=== PATIENT | female | born 1980 | race Caucasian/White ===

== ENCOUNTER 2023-08-19 16:40 | Inpatient (IN) | payer SELFPAY ==
[~2023-08-19] VITALS: Ht 160 cm; Wt 63.0 kg
[2023-08-19] MEDS: NS 1,000 ML IV ONE (17:29)
[2023-08-19 17:36] LABS: HEMATOCRIT 38.2 % (36.0-47.0); HEMOGLOBIN 13.3 g/dl (12.0-15.5); MEAN CORPUSCULAR HEMOGLOBIN 36.6 pg (27.0-33.0); MEAN CORPUSCULAR HGB CONC 34.8 g/dl (32.0-36.5); MEAN CORPUSCULAR VOLUME 105.2 fl (80.0-96.0); RED BLOOD COUNT 3.63 10^6/uL (4.00-5.40); WHITE BLOOD COUNT 5.2 10^3/uL (4.0-10.0)
[2023-08-19] MEDS: LORazepam 2 MG TAB PO PRN (17:46)
[2023-08-19 17:58] LABS: PLATELET COUNT, AUTOMATED 75 10^3/uL (150-450)
[2023-08-19 18:07] LABS: ETHYL ALCOHOL (ETHANOL) 0.015 % (0.000-0.010)
[2023-08-19 18:09] LABS: ALBUMIN 3.8 G/DL (3.2-5.2); ALKALINE PHOSPHATASE 143 U/L (46-116); ALT/SGPT 61 U/L (7.0-40); AST/SGOT 136 U/L (<34); BILIRUBIN,DIRECT 0.6 MG/DL (<0.4); BILIRUBIN,TOTAL 1.8 MG/DL (0.3-1.2); BLOOD UREA NITROGEN 12 MG/DL (9-23); CALCIUM LEVEL 9.1 MG/DL (8.5-10.1); CARBON DIOXIDE LEVEL 20 MMOL/L (20-31); CHLORIDE LEVEL 102 MMOL/L (98-107); CREATININE FOR GFR 0.46 MG/DL (0.55-1.30); GLOMERULAR FILTRATION RATE > 60.0 (>58); GLUCOSE, FASTING 78 MG/DL (60-100); HCG, SERUM QUALITATIVE NEGATIVE (NEGATIVE); SALICYLATE LEVEL < 3.0 MG/DL (<30); SODIUM LEVEL 135 MMOL/L (136-145)
[2023-08-19 18:12] LABS: THYROID STIMULATING HORMONE 3.869 uIU/ML (0.55-4.78)
[2023-08-19 18:19] LABS: AMPHETAMINES LEVEL URINE NEGATIVE (NEGATIVE)
[2023-08-19 18:20] LABS: BARBITURATES URINE NEGATIVE (NEGATIVE); BENZODIAZEPINES URINE NEGATIVE (NEGATIVE); CANNABINOIDS URINE NEGATIVE (NEGATIVE); COCAINE METABOLITE URINE NEGATIVE (NEGATIVE); METHADONE URINE NEGATIVE (NEGATIVE); OPIATES URINE NEGATIVE (NEGATIVE); PHENCYCLIDINE URINE NEGATIVE (NEGATIVE)
[2023-08-19] MEDS: LORazepam 2 MG/ML 1ML VIAL IV STA (19:44)
[2023-08-19] MEDS ORDERED: POTASSIUM CHLORIDE 10MEQ SR TABLET PO SCH (20:00)
[2023-08-19] MEDS: LORazepam 2 MG/ML 1ML VIAL IV PRN ×2 (20:10→22:48)
[2023-08-19] MEDS ORDERED: LEVO25TA5 PO (20:15)
[2023-08-19 20:24] LABS: LIPASE 83 U/L (12-53)
[2023-08-19 20:25] LABS: MAGNESIUM LEVEL 1.5 MG/DL (1.8-2.4)
[2023-08-19 20:26] LABS: AMYLASE 143 U/L (30-118)
[2023-08-19] MEDS ORDERED: LORazepam 2 MG TAB XX PRN (20:35)
[2023-08-19] MEDS: POTASSIUM CHLORIDE 10% LIQ 20MEQ/15ML UDC PO ONE (21:00)
[2023-08-19] MEDS ORDERED: THIAMINE 100 MG TAB PO SCH (21:00)
[2023-08-19] MEDS: THIAMINE 100 MG TAB PO SCH (21:00)
[2023-08-19] MEDS ORDERED: HOME MED LIST COMPLETE! XX SCH (21:15)
[2023-08-19] MEDS: MAG SULF 1GM/100ML (MAG RUN) 1 GM in IV 1 EA IV SCH (21:16)
[2023-08-19] MEDS: dexmedeTOMidine 200 MCG in IV 1 EA IV SCH (21:25)
[2023-08-19 22:46] VITALS: BP 126/8
[2023-08-19 23:00] VITALS: BP 126/81; TEMP 99.4; O2SAT 96
[2023-08-19 23:48] VITALS: BP 129/76
[2023-08-19 23:51] VITALS: BP 129/76; TEMP 98.5; O2SAT 95
[2023-08-20] VITALS (14 sets, daily range): BP systolic 119–150; BP diastolic 75–84; TEMP 96.9–99.4; O2SAT 92–100
[2023-08-20] MEDS: OXAZEPAM 10MG CAP PO SCH
[2023-08-20] MEDS: KCL 10MEQ/100ML SWI (KRUN) 10 MEQ in IV 1 EA IV SCH (00:42)
[2023-08-20 04:58] LABS: HEMATOCRIT 34.7 % (36.0-47.0); HEMOGLOBIN 11.9 g/dl (12.0-15.5); MEAN CORPUSCULAR HEMOGLOBIN 36.1 pg (27.0-33.0); MEAN CORPUSCULAR HGB CONC 34.3 g/dl (32.0-36.5); MEAN CORPUSCULAR VOLUME 105.2 fl (80.0-96.0); WHITE BLOOD COUNT 3.5 10^3/uL (4.0-10.0)
[2023-08-20 05:05] LABS: PLATELET COUNT, AUTOMATED 71 10^3/uL (150-450)
[2023-08-20 05:20] LABS: ALBUMIN 3.3 G/DL (3.2-5.2); ALKALINE PHOSPHATASE 115 U/L (46-116); ALT/SGPT 50 U/L (7.0-40); AST/SGOT 116 U/L (<34); BILIRUBIN,TOTAL 1.9 MG/DL (0.3-1.2); BLOOD UREA NITROGEN 9 MG/DL (9-23); CALCIUM LEVEL 8.5 MG/DL (8.5-10.1); CARBON DIOXIDE LEVEL 20 MMOL/L (20-31); CHLORIDE LEVEL 106 MMOL/L (98-107); CREATININE FOR GFR 0.38 MG/DL (0.55-1.30); GLOMERULAR FILTRATION RATE > 60.0 (>58); GLUCOSE, FASTING 83 MG/DL (60-100); POTASSIUM SERUM 3.6 MMOL/L (3.5-5.1); SODIUM LEVEL 136 MMOL/L (136-145); TOTAL PROTEIN 6.7 G/DL (5.7-8.2)
[2023-08-20 07:06] LABS: APPEARANCE, URINE CLEAR (CLEAR); BACTERIA, URINE AUTO 1+ (NEGATIVE); BILIRUBIN, URINE AUTO NEGATIVE (NEGATIVE); BLOOD, URINE BLOOD NEGATIVE (NEGATIVE); COLOR, URINE YELLOW (YELLOW); GLUCOSE, URINE (UA) AUTO NEGATIVE (NEGATIVE); KETONE, URINE AUTO NEGATIVE (NEGATIVE); LEUKOCYTE ESTERASE, URINE AUTO TRACE (NEGATIVE); NITRITE, URINE AUTO NEGATIVE (NEGATIVE); PROTEIN, URINE AUTO NEGATIVE (NEGATIVE); RBC, URINE AUTO 0 /HPF (0-3); SPECIFIC GRAVITY URINE AUTO 1.004 (1.002-1.035); SQUAMOUS EPITHELIAL CELL UR AU 0 /HPF (0-6); UROBILINOGEN, URINE AUTO 0.2 mg/dL (0.0-2.0); WBC, URINE AUTO 0 /HPF (0-3)
[2023-08-20] MEDS ORDERED: MULTIVITAMINS/MINERALS THERAP 1 TAB PO SCH (09:00)
[2023-08-20] MEDS ORDERED: FOLIC ACID 1MG TAB PO SCH (09:00)
[2023-08-20] MEDS: MULTIVITAMINS/MINERALS THERAP 1 TAB PO SCH (09:45)
[2023-08-20] MEDS: FOLIC ACID 1MG TAB PO SCH (09:45)
[2023-08-20] MEDS: ENOXAPARIN 40MG/0.4ML SYRINGE (J1650 PER 10MG) SC SCH (09:46)
[2023-08-20] MEDS: LEVOTHYROXINE 25MCG TABLET (0.025MG) PO SCH (11:11)
[2023-08-20 12:54] LABS: HEPATITIS B SURFACE ANTIBODY NEGATIVE (POSITIVE)
[2023-08-20 13:06] LABS: HEPATITIS B SURFACE ANTIGEN NEGATIVE (NEGATIVE)
[2023-08-20 13:27] LABS: HEPATITIS C VIRUS ABY INDEX < 0.02 INDEX (<0.8)
[2023-08-21] VITALS: BP 138/91; TEMP 98.9; O2SAT 98
[2023-08-21 04:30] VITALS: BP 130/79; TEMP 99; O2SAT 99
[2023-08-21 05:25] LABS: BASO # 0.1 10^3/uL (0.0-0.2); BASO % 1.4 % (0.0-1.0); EOS # 0.1 10^3/uL (0.0-0.5); EOS % 1.6 % (0.0-3.0); HEMATOCRIT 34.2 % (36.0-47.0); HEMOGLOBIN 11.8 g/dl (12.0-15.5); LYMPH # 1.1 10^3/uL (1.5-5.0); MEAN CORPUSCULAR HEMOGLOBIN 36.5 pg (27.0-33.0); MEAN CORPUSCULAR HGB CONC 34.5 g/dl (32.0-36.5); MEAN CORPUSCULAR VOLUME 105.9 fl (80.0-96.0); MONO # 0.5 10^3/uL (0.0-0.8); MONO % 13.6 % (2.0-8.0); NEUTROPHILS # 1.9 10^3/uL (1.5-8.5); NEUTROPHILS % 51.9 % (36.0-66.0); RED BLOOD COUNT 3.23 10^6/uL (4.00-5.40); WHITE BLOOD COUNT 3.7 10^3/uL (4.0-10.0)
[2023-08-21 05:29] LABS: PLATELET COUNT, AUTOMATED 84 10^3/uL (150-450)
[2023-08-21 05:41] LABS: BLOOD UREA NITROGEN 10 MG/DL (9-23); CALCIUM LEVEL 8.5 MG/DL (8.5-10.1); CARBON DIOXIDE LEVEL 25 MMOL/L (20-31); CHLORIDE LEVEL 106 MMOL/L (98-107); CREATININE FOR GFR 0.43 MG/DL (0.55-1.30); GLOMERULAR FILTRATION RATE > 60.0 (>58); GLUCOSE, FASTING 109 MG/DL (60-100); SODIUM LEVEL 139 MMOL/L (136-145)
[2023-08-21] MEDS: POTASSIUM CHLORIDE 10MEQ SR TABLET PO ONE ×3 (06:38→11:14)
[2023-08-21 07:24] LABS: MAGNESIUM LEVEL 1.7 MG/DL (1.8-2.4)
[2023-08-21] MEDS: KCL 10MEQ/100ML SWI (KRUN) 10 MEQ in IV 1 EA IV SCH (07:37)
[2023-08-21 07:40] VITALS: BP 120/81; TEMP 98.1; O2SAT 100
[2023-08-21 09:39] LABS: INR 1.32
[2023-08-21 11:24] VITALS: BP 138/76; TEMP 97.3; O2SAT 98
[2023-08-21] MEDS: MAG SULF 1GM/100ML (MAG RUN) 1 GM in IV 1 EA IV SCH (13:27)
[2023-08-21] MEDS ORDERED: MIRALAX *UNIT DOSE* 17GM PACKET PO PRN (15:15)
[2023-08-21 15:18] VITALS: BP 141/85; TEMP 97.7; O2SAT 97
[2023-08-21 20:00] VITALS: BP 144/73; TEMP 98.6; O2SAT 98
[2023-08-22] VITALS: BP 125/73; TEMP 97.9; O2SAT 100
[2023-08-22 04:00] VITALS: BP 144/98; TEMP 97.6; O2SAT 99
[2023-08-22 05:08] LABS: BASO # 0.1 10^3/uL (0.0-0.2); BASO % 1.3 % (0.0-1.0); EOS # 0.1 10^3/uL (0.0-0.5); EOS % 1.6 % (0.0-3.0); HEMATOCRIT 35.6 % (36.0-47.0); HEMOGLOBIN 12.3 g/dl (12.0-15.5); LYMPH # 1.2 10^3/uL (1.5-5.0); LYMPH % 31.6 % (24.0-44.0); MEAN CORPUSCULAR HEMOGLOBIN 36.9 pg (27.0-33.0); MEAN CORPUSCULAR HGB CONC 34.6 g/dl (32.0-36.5); MEAN CORPUSCULAR VOLUME 106.9 fl (80.0-96.0); MONO # 0.5 10^3/uL (0.0-0.8); MONO % 13.9 % (2.0-8.0); NEUTROPHILS % 51.3 % (36.0-66.0); PLATELET COUNT, AUTOMATED 100 10^3/uL (150-450); RED BLOOD COUNT 3.33 10^6/uL (4.00-5.40); WHITE BLOOD COUNT 3.8 10^3/uL (4.0-10.0)
[2023-08-22 05:53] LABS: BLOOD UREA NITROGEN 8 MG/DL (9-23); CALCIUM LEVEL 8.7 MG/DL (8.5-10.1); CARBON DIOXIDE LEVEL 25 MMOL/L (20-31); CHLORIDE LEVEL 106 MMOL/L (98-107); CREATININE FOR GFR 0.41 MG/DL (0.55-1.30); GLOMERULAR FILTRATION RATE > 60.0 (>58); GLUCOSE, FASTING 108 MG/DL (60-100); POTASSIUM SERUM 3.9 MMOL/L (3.5-5.1); SODIUM LEVEL 137 MMOL/L (136-145)
[2023-08-22 07:28] LABS: MAGNESIUM LEVEL 1.8 MG/DL (1.8-2.4)
[2023-08-22 08:00] VITALS: BP 119/72; TEMP 97.9; O2SAT 98
[2023-08-22] MEDS ORDERED: FOLI1TAB11 PO (08:41)
[2023-08-22] MEDS ORDERED: THIA100TA PO (08:41)
== END 2023-08-22 09:25 | disposition home or self-care (01) | DRG 775 ==
LOC: M ED 16:40 → M ED INP 21:11 → M ICU 22:17 → OBSVTOIN 08-20 14:20
PROVIDERS: ADMIT Internal Medicine Critical Care Medicine; ATTEND Internal Medicine
DX: F10.231 Alcohol dependence with withdrawal delirium (principal); D69.6 Thrombocytopenia, unspecified; R74.01 Elevation of levels of liver transaminase levels; E87.6 Hypokalemia; E83.42 Hypomagnesemia; D61.818 Other pancytopenia; E03.9 Hypothyroidism, unspecified; L71.9 Rosacea, unspecified; K76.0 Fatty (change of) liver, not elsewhere classified; Z79.890 Hormone replacement therapy

== ENCOUNTER → 2024-02-16 | Outpatient (CLI) | payer OTHER ==
[~2024-02-16] MED LIST: FOLI1TAB11 PO; LEVO25TA5 PO; THIA100TA PO
[2024-02-16 11:19] LABS: BASO # 0.1 10^3/uL (0.0-0.2); BASO % 2.1 % (0.0-1.0); EOS % 0.7 % (0.0-3.0); HEMATOCRIT 36.5 % (36.0-47.0); HEMOGLOBIN 12.4 g/dl (12.0-15.5); LYMPH # 1.5 10^3/uL (1.5-5.0); LYMPH % 52.3 % (24.0-44.0); MEAN CORPUSCULAR HEMOGLOBIN 35.4 pg (27.0-33.0); MEAN CORPUSCULAR VOLUME 104.3 fl (80.0-96.0); MONO # 0.4 10^3/uL (0.0-0.8); MONO % 13.1 % (2.0-8.0); NEUTROPHILS % 31.4 % (36.0-66.0); WHITE BLOOD COUNT 2.8 10^3/uL (4.0-10.0)
[2024-02-16 11:36] LABS: ALBUMIN 3.9 G/DL (3.2-5.2); ALKALINE PHOSPHATASE 110 U/L (35-104); ALT/SGPT 77 U/L (7.0-40); AST/SGOT 175 U/L (<34); BLOOD UREA NITROGEN 7 MG/DL (9-23); CALCIUM LEVEL 9.7 MG/DL (8.5-10.1); CARBON DIOXIDE LEVEL 28 MMOL/L (20-31); CHLORIDE LEVEL 102 MMOL/L (98-107); CHOLESTEROL LEVEL 325 MG/DL (<200); CHOLESTEROL RISK RATIO 2.37 (<5); CREATININE FOR GFR 0.43 MG/DL (0.55-1.30); GLOMERULAR FILTRATION RATE > 60.0 (>58); GLUCOSE, FASTING 90 MG/DL (60-100); HDL CHOLESTEROL 136.7 MG/DL (>40); LDL CHOLESTEROL 159.1 MG/DL (<100); NON-HDL-C 188.3 MG/DL; POTASSIUM SERUM 3.7 MMOL/L (3.5-5.1); SODIUM LEVEL 139 MMOL/L (136-145); TOTAL PROTEIN 7.9 G/DL (5.7-8.2); TRIGLYCERIDES LEVEL 146 MG/DL (<150)
[2024-02-16 11:38] LABS: FREE T4 1.04 NG/DL (0.89-1.76)
[2024-02-16 11:50] LABS: NEUTROPHILS # 0.9 10^3/uL (1.5-8.5); PLATELET COUNT, AUTOMATED 67 10^3/uL (150-450)
== END ==
LOC: M PLALAB 07:42
PROVIDERS: ATTEND Nurse Practitioner Family
DX: E03.9 Hypothyroidism, unspecified (principal)

== ENCOUNTER 2024-03-06 20:08 | Observation (INO) | payer OTHER ==
[~2024-03-06] VITALS: Ht 162.6 cm; Wt 57.6 kg
[2024-03-06] MEDS ORDERED: NS 500 ML IV ONE (20:40)
[2024-03-06] MEDS: NS 1,000 ML IV ONE (21:03)
[2024-03-06 21:04] LABS: BASO # 0.1 10^3/uL (0.0-0.2); BASO % 1.5 % (0.0-1.0); HEMOGLOBIN 7.5 g/dl (12.0-15.5); LYMPH # 2.2 10^3/uL (1.5-5.0); LYMPH % 37.9 % (24.0-44.0); MEAN CORPUSCULAR HEMOGLOBIN 36.1 pg (27.0-33.0); MEAN CORPUSCULAR HGB CONC 34.1 g/dl (32.0-36.5); MEAN CORPUSCULAR VOLUME 105.8 fl (80.0-96.0); MONO # 0.6 10^3/uL (0.0-0.8); MONO % 9.8 % (2.0-8.0); NEUTROPHILS % 50.3 % (36.0-66.0); RED BLOOD COUNT 2.08 10^6/uL (4.00-5.40); WHITE BLOOD COUNT 5.9 10^3/uL (4.0-10.0)
[2024-03-06 21:19] LABS: HCG, SERUM QUANTITATIVE < 2.6 MIU/ML (<4.2)
[2024-03-06 21:21] LABS: ALBUMIN 3.7 G/DL (3.2-5.2); ALKALINE PHOSPHATASE 117 U/L (35-104); ALT/SGPT 90 U/L (7.0-40); AST/SGOT 233 U/L (<34); BLOOD UREA NITROGEN 12 MG/DL (9-23); CARBON DIOXIDE LEVEL 26 MMOL/L (20-31); CHLORIDE LEVEL 100 MMOL/L (98-107); CREATININE FOR GFR 0.51 MG/DL (0.55-1.30); GLOMERULAR FILTRATION RATE > 60.0 (>58); GLUCOSE, FASTING 125 MG/DL (60-100); POTASSIUM SERUM 3.6 MMOL/L (3.5-5.1); SODIUM LEVEL 138 MMOL/L (136-145); TOTAL PROTEIN 6.9 G/DL (5.7-8.2)
[2024-03-06 21:26] LABS: PLATELET COUNT, AUTOMATED 91 10^3/uL (150-450)
[2024-03-06 22:21] LABS: APPEARANCE, URINE MANUAL TURBID (CLEAR); COLOR, URINE MANUAL RED (YELLOW)
[2024-03-06 22:22] LABS: BILIRUBIN, URINE MANUAL OBSCURED (NEGATIVE); BLOOD URINE MANUAL POSITIVE (NEGATIVE); GLUCOSE, URINE (UA) MANUAL OBSCURED mg/dL (NEGATIVE); KETONE, URINE MANUAL OBSCURED mg/dL (NEGATIVE); LEUKOCYTE ESTERASE, URINE MAN OBSCURED (NEGATIVE); NITRITE, URINE MANUAL OBSCURED (NEGATIVE); PROTEIN, URINE MANUAL OBSCURED mg/dL (NEGATIVE); UROBILINOGEN, URINE MANUAL OBSCURED mg/dl (NORMAL)
[2024-03-06 22:57] LABS: RBC, URINE TNTC /hpf (0-3)
[2024-03-06 22:58] LABS: HYALINE CAST, URINE NONE SEEN /lpf (0-1)
[2024-03-06 23:00] LABS: BACTERIA, URINE NONE SEEN; SQUAMOUS EPITHELIAL CELL URINE SMALL AMOUNT /hpf (SMALL AMT)
[2024-03-06 23:05] VITALS: BP 101/73; TEMP 99.3; O2SAT 100
[2024-03-06 23:25] VITALS: BP 111/76; TEMP 98.8; O2SAT 100
[2024-03-06] MEDS ORDERED: THIA100T7 PO (23:26)
[2024-03-06] MEDS ORDERED: VITA400T15 PO (23:26)
[2024-03-06] MEDS ORDERED: HOME MED LIST COMPLETE! XX SCH (23:30)
[2024-03-07] VITALS (13 sets, daily range): BP systolic 107–129; BP diastolic 67–82; TEMP 97–99.7; O2SAT 94–99
[2024-03-07] MEDS ORDERED: propofoL 200 MG/20 ML VIAL As Ordered ONE (00:14)
[2024-03-07] MEDS ORDERED: LIDOCAINE 2% 100MG/5ML SDV (FOR ANES.) As Ordered ONE (00:14)
[2024-03-07] MEDS ORDERED: MIDAZOLAM INJ 2MG/2ML VIAL As Ordered ONE (00:14)
[2024-03-07] MEDS ORDERED: ONDANSETRON 4MG 2ML VIAL As Ordered ONE (00:14)
[2024-03-07] MEDS ORDERED: fentaNYL 100 MCG/2 ML INJECTION As Ordered ONE (00:14)
[2024-03-07] MEDS ORDERED: HYDROMORPHONE HCL 0.5 MG/ 0.5 ML SYRINGE IV PRN ×2 (00:15→00:30)
[2024-03-07] MEDS ORDERED: MEPERIDINE 25 MG/ML 1ML VIAL IV PRN ×2 (00:15→00:30)
[2024-03-07] MEDS ORDERED: METOCLOPRAMIDE INJ 10MG/2ML VIAL IV PRN ×2 (00:15→00:30)
[2024-03-07] MEDS ORDERED: ONDANSETRON 4MG 2ML VIAL IV PRN ×2 (00:15→00:30)
[2024-03-07] MEDS ORDERED: diphenhydrAMINE 50MG/ML VIAL IV PRN ×2 (00:15→00:30)
[2024-03-07] MEDS ORDERED: oxyCODONE 5MG TAB PO PRN ×2 (00:15→00:30)
[2024-03-07] MEDS ORDERED: fentaNYL 100 MCG/2 ML INJECTION IV PRN ×2 (00:15→00:30)
[2024-03-07] MEDS ORDERED: KETOROLAC 60MG 2ML VIAL As Ordered ONE (00:18)
[2024-03-07] MEDS: LIDOCAINE 1% SDV 30ML VIAL As Ordered ONE (00:20)
[2024-03-07] MEDS ORDERED: KETOROLAC 30 MG/ML 1ML VIAL IV PRN (00:30)
[2024-03-07] MEDS: LR 1,000 ML IV SCH (00:30)
[2024-03-07 01:35] LABS: GC DNA AMPLIFICATION NEGATIVE (NEGATIVE)
[2024-03-07] MEDS: LEVOTHYROXINE 25MCG TABLET (0.025MG) PO SCH (06:41)
[2024-03-07 06:48] LABS: BASO % 1.5 % (0.0-1.0); HEMATOCRIT 27.3 % (36.0-47.0); HEMOGLOBIN 9.4 g/dl (12.0-15.5); LYMPH # 0.3 10^3/uL (1.5-5.0); LYMPH % 23.5 % (24.0-44.0); MEAN CORPUSCULAR HEMOGLOBIN 33.2 pg (27.0-33.0); MEAN CORPUSCULAR HGB CONC 34.4 g/dl (32.0-36.5); MEAN CORPUSCULAR VOLUME 96.5 fl (80.0-96.0); MONO # 0.1 10^3/uL (0.0-0.8); MONO % 4.4 % (2.0-8.0); NEUTROPHILS % 67.7 % (36.0-66.0); RED BLOOD COUNT 2.83 10^6/uL (4.00-5.40); WHITE BLOOD COUNT 1.4 10^3/uL (4.0-10.0)
[2024-03-07 07:24] LABS: NEUTROPHILS # 0.9 10^3/uL (1.5-8.5); PLATELET COUNT, AUTOMATED 52 10^3/uL (150-450)
[2024-03-07] MEDS ORDERED: NORE0.353 PO (07:27)
== END 2024-03-07 11:10 | disposition home or self-care (01) ==
LOC: M ED 20:08 → M ED INP 03-07 00:29 → M PED 03-07 01:04
PROVIDERS: ADMIT Specialist; ATTEND Specialist
DX: O03.39 Incomplete spontaneous abortion with other complications (principal); N84.0 Polyp of corpus uteri; N93.8 Other specified abnormal uterine and vaginal bleeding; D62 Acute posthemorrhagic anemia
CPT/HCPCS: 36415; 59812; 76801; 76817; 80053; 81000; 84702; 85025; 85049; 85055; 86850; 86900; 86901; 86920; 87086; 87210; 87810; 87850; 88305; 93041; 93976; 94760; 99285; J1100; J1885; J2250; J2405; J3010; P9016

== ENCOUNTER → 2024-04-01 | Outpatient (CLI) | payer OTHER ==
[~2024-04-01] MED LIST changes: +NORE0.353 PO; +THIA100T7 PO; +VITA400T15 PO
== END ==
LOC: M WHC 10:30
PROVIDERS: ATTEND Specialist
DX: Z12.31 Encounter for screening mammogram for malignant neoplasm of breast (principal)